=== PATIENT | male | born 1965 | race Caucasian/White ===

== ENCOUNTER 2018-05-18 14:48 | Emergency (ER) | payer OTHER ==
[2018-05-18 14:53] VITALS: BP 128/87; PULSE 62; TEMP 98.8; BMI 21.2
--- NOTE | 2018-05-18 14:58 | PDOC ---
Attending Attestation - Resident Resident Name: Verona Mock - ED Attending Attestation I have performed the following: I have examined & evaluated the patient, The case was reviewed & discussed with the resident, I agree w/resident's findings & plan, Exceptions are as noted - HPI HPI: 05/18/18 14:57 52 yo M pmh HLD, right hand dominant, p/w R wrist pain. The patient was working out at the gym. A barweight weighing approx 50 lb had fell when patient was exercising. Hit the patient's right wrist. Denies numbness, weakness. The patient had taken NSAIDS with improvement in symptoms. However, pt was concerned that he may have broken the bone and came into the ED. - Physicial Exam PE: 05/18/18 15:05 GENERAL: Awake, alert, and fully oriented, in no acute distress HEAD: No signs of trauma EYES: PERRLA, EOMI, sclera anicteric, conjunctiva clear ENT: Auricles normal inspection, hearing grossly normal, nares patent, NECK: Normal ROM, supple EXTREMITIES: Normal range of motion, no edema. No clubbing or cyanosis. No cords, erythema, or tenderness RUE: 2+ radial pulse. sensation and strength intact throughout the median/radian /ulnar nerve distribution. No joint instability. FROM right wrist. < 2 sec cap refill. TTP distal radial wrist. Small 2x2 overlying cm ecchymosis. NEUROLOGICAL: Cranial nerves II through XII grossly intact. Normal speech, normal gait SKIN: Warm, Dry, normal turgor, no rashes or lesions noted. - Medical Decision Making 05/18/18 15:07 Vital Signs Temp Pulse Resp BP Pulse Ox 98.8 F 62 16 128/87 100 05/18/18 14:49 05/18/18 14:49 05/18/18 14:49 05/18/18 14:49 05/18/18 14:49 r/o right wrist fracture. I suspect that this is right wrist ecchymosis. Xray, NSAIDS, ice 05/18/18 15:27 Wrist xray reviewed by me, pending official radiology read. No acute fractures. Pt placed in removable splint. Activity as tolerated. RICE therapy. If pain persists for more than 2 weeks, f/u with orthopedics. Pt verbalizes understanding and agrees with plan.
--- NOTE | 2018-05-18 15:08 | PDOC ---
History of Present Illness - General Chief Complaint: Pain, Acute Stated Complaint: RIGHT WRIST PAIN Time Seen by Provider: 05/18/18 14:52 - History of Present Illness Initial Comments: 05/18/18 15:03 52 year old R hand dominant man who presents with R wrist pain after approx 50 pounds bar weights fell onto his wrist while at the gym. He reports a pain of 2/ 10. He took two Aleves with relief. He has no other complaints at bedside. PMHX: HLD PSHX: L knee, R shoulder Meds: Crestor 10mg Allergies: none Tob: none Etoh: none Rec drugs: none Past History - Past Medical History Allergies/Adverse Reactions: Allergies Allergy/AdvReac Type Severity Reaction Status Date / Time No Known Allergies Allergy Verified 05/18/18 14:49 Home Medications: Ambulatory Orders Rosuvastatin Calcium [Crestor] 10 mg PO HS 05/18/18 CVA: No COPD: No Hypercholesterolemia: Yes - Suicide/Smoking/Psychosocial Hx Smoking History: Never smoked Hx Alcohol Use: No Drug/Substance Use Hx: No Substance Use Type: None Review of Systems - Review of Systems Able to Perform ROS?: Yes Is the patient limited [place] proficient: No Constitutional: No: Fever HEENTM: No: Tinnitus Respiratory: No: Cough, Shortness of Breath Cardiac (ROS): No: Chest Pain, Chest Tightness ABD/GI: No: Constipated, Diarrhea, Nausea, Vomiting Musculoskeletal: Yes: See HPI *Physical Exam - Vital Signs Last Vital Signs Temp Pulse Resp BP Pulse Ox 98.8 F 62 16 128/87 100 05/18/18 14:49 05/18/18 14:49 05/18/18 14:49 05/18/18 14:49 05/18/18 14:49 - Physical Exam Comments: 05/18/18 15:07 GENERAL: Awake, alert, and fully oriented, in no acute distress HEAD: No signs of trauma, normocephalic, atraumatic EYES: EOMI, sclera anicteric, conjunctiva clear ENT: oropharynx clear without exudates. Moist mucosa LUNGS: No distress, speaks full sentences, clear to auscultation bilaterally HEART: Regular rate and rhythm, normal S1 and S2, no murmurs, rubs or gallops, peripheral pulses normal and equal bilaterally. EXTREMITIES : + slight erythema and edema of R wrist, 5/5 strength on wrist flexion and extension, full ulnar and radial deviation w/o tenderness, No tenderness to palpation, Normal inspection, Normal range of motion, no edema. No clubbing or cyanosis. NEUROLOGICAL: Cranial nerves II through XII grossly intact. Normal speech, normal gait, no focal sensorimotor deficits SKIN: Warm, Dry, normal turgor, no rashes or lesions noted ED Treatment Course - RADIOLOGY Radiology Studies Ordered: Category Date Time Status WRIST- RIGHT [RAD] Stat Radiology 05/18/18 15:00 Ordered Medical Decision Making - Medical Decision Making 05/18/18 15:10 52 year old R hand dominant man who presents with R wrist pain after approx 50 pounds bar weights fell onto his wrist while at the gym. Patient symptoms and history are most consistent with soft tissue contusion vs wrist sprain vs wrist fx. Considering physical exam unlikely for fracture, however will order R wrist XR to assess for hairline fracture. 05/18/18 15:30 R wrist XR: unremarkable. Patient stable for discharge with air cast as needed. *DC/Admit/Observation/Transfer Diagnosis at time of Disposition: Wrist contusion - Discharge Dispostion Disposition: HOME Condition at time of disposition: Stable Decision to Admit order: No - Referrals Referrals: Tanmay Thompson [Primary Care Provider] - Canelo Dean MD [Staff Physician] - - Patient Instructions Printed Discharge Instructions: DI for Wrist Sprain, DI for Contusion Additional Instructions: Wear R wrist air cast as needed for symptomatic relief and comfort. Rest and ice the wrist, and use over the counter aleve for pain management. Return to the ED if symptoms worsen or do not improve in 2 weeks. Follow up with PCP and orthopedics within 1-2 weeks. - Post Discharge Activity
== END 2018-05-18 15:43 | disposition home or self-care (01) ==
LOC: FER 14:48
PROC: 2W3CX1Z Immobilization of Right Lower Arm using Splint (ICD-10-PCS; principal; 2018-05-18)
DX: S60.211A Contusion of right wrist, initial encounter (principal); W20.8XXA Other cause of strike by thrown, projected or falling object, initial encounter; Y93.B3 Activity, free weights; Y92.39 Other specified sports and athletic area as the place of occurrence of the external cause
CPT/HCPCS: 73110-TC-RT-FY; 99283-25